=== PATIENT | male | born 1995 | race Caucasian/White ===

== ENCOUNTER → 2017-12-19 11:00 | Outpatient (CLI) | payer MEDICAID, SELFPAY | PROVIDERS: PCP Family Medicine; Visit Provider Nurse Practitioner Family | DX: B18.2 Chronic viral hepatitis C (principal); F11.20 Opioid dependence, uncomplicated; F90.9 Attention-deficit hyperactivity disorder, unspecified type | CPT/HCPCS: 99214 ==

== ENCOUNTER 2018-03-05 15:38 | Outpatient (CLI) | payer MEDICAID, SELFPAY ==
--- NOTE | 2018-03-05 15:43 | W.CCNOTE ---
Date of service: 03/05/18 Time of Service: 15:44 Comprehensive Care Clinic Note Note: [facility] [address] [place] [address] [facility] Follow Up Visit Name: Christopher Rasheed Date of : 1995 Date of Service: 03/05/2018 SUBJECTIVE: Christopher called yesterday stating he had a lot to discuss and asked to come in. ?I?m out of alf and living in DOC housing. I need to get treatment for my Hep C now and also talk about a mood stabilizer.? Has not seen his psychologist chief. He has had negative UDSs at the MAT clinic ROS: General ? weight is stable, no night sweats HEENT: neg, Cardiac/Pulmonary: neg GI: some AM nausea and aching ? no vomiting, diarrhea. GERD controlled. Extremities: No swelling or joint problems Psych: Feels n, no hallucinations, SI/HI ideation Allergies/Sensitivities: NKA Current Medications: Suboxone 16 mg a day dispensed at the [facility] clinic daily, Adderall XL 20 mg a day, Gabapentin 900mg tid, Trazadone 100mg q HS, Pantoprozole 40mg a day, Antabuse 250mg a day. Social History: Employment / Type of Work: Wants to work and is looking Health Insurance: [place] Medicaid - active Substance Abuse History: Tobacco: Smoker: Type: Amount: 1/2ppd cigarettes ? smoking has reduced ETOH: Daily/Weekly? Type: Amount: None since released Illicit Drug Use: If + Type(s): Amount: Last was Cocaine prior to recent incarceration. ?I am not going back to Cocaine. I?ll go back to alf. The Adderall helps me focus.?? RX Drug Dependence: IVDU Hx? + Last: prior to incarceration Overdose Hx? Denies Added Hx/Treatment: Suboxone x 2+ years and no illicit opiates Other Psychosocial Considerations: Has severed ties with his old GF Christopher aRsheed, 1995 pg.2. OBJECTIVE Temp: 97.9 Pulse: 70 Resp: 14 BP: 128/74 General: AINAD Skin: W/D no rash, jaundice Eyes: non icteric Cardiac: RRR, No MCRG Chest/Lungs: clear Abdomen: NABS, ND, NT, No ogm Extremities: No edema Musculoskeletal: No swollen, hot joints Neuro: Gait strong and steady, No tremor Psych: Speech w normal content and pressure but rapid, eye contact good, attitude cooperative, affect appropriate, mood anxious, memory intact, AAOx4, thought process logical with normal content. ASSESSMENT/PLAN: Chronic Active HCV with approval in the past for 12 weeks of Epclusa Treatment as suggested by Dr. Christie but Christopher was incarcerated before he could get and start the medication and so now that he is in DOC housing and once again going daily to dose with Suboxone he would like treatment and take the daily medication prior to taking the Suboxone daily. Another PA will be sent in today for this and get him a specialty pharmacy RX CASANDRA. He will stop / hold the PPI during treatment. Lab Work: He is up to date and these results will be faxed with this note to accompany the PA request that is faxed in today. Provider of Care: Sandrita Erickson NP
--- NOTE | 2018-03-05 15:46 | CCCE_ITS ---
Date of service: 03/05/18 Time of Service: 15:44 Comprehensive Care Clinic Note Note: [facility] [address] [place] [address] Comprehensive Care Clinic of [facility] Follow Up Visit Name: Christopher Rasheed Date of : 1995 Date of Service: 03/05/2018 SUBJECTIVE: Christopher called yesterday stating he had a lot to discuss and asked to come in. ?I?m out of halfway and living in DOC housing. I need to get treatment for my Hep C now and also talk about a mood stabilizer.? Has not seen his psychologist research assistant. He has had negative UDSs at the MAT clinic ROS: General ? weight is stable, no night sweats HEENT: neg, Cardiac/Pulmonary: neg GI: some AM nausea and aching ? no vomiting, diarrhea. GERD controlled. Extremities: No swelling or joint problems Psych: Feels n, no hallucinations, SI/HI ideation Allergies/Sensitivities: NKA Current Medications: Suboxone 16 mg a day dispensed at the [facility] clinic daily, Adderall XL 20 mg a day, Gabapentin 900mg tid, Trazadone 100mg q HS, Pantoprozole 40mg a day, Antabuse 250mg a day. Social History: Employment / Type of Work: Wants to work and is looking Health Insurance: [place] Medicaid - active Substance Abuse History: Tobacco: Smoker: Type: Amount: 1/2ppd cigarettes ? smoking has reduced ETOH: Daily/Weekly? Type: Amount: None since released Illicit Drug Use: If + Type(s): Amount: Last was Cocaine prior to recent incarceration. ?I am not going back to Cocaine. I?ll go back to halfway. The Adderall helps me focus.?? RX Drug Dependence: IVDU Hx? + Last: prior to incarceration Overdose Hx? Denies Added Hx/Treatment: Suboxone x 2+ years and no illicit opiates Other Psychosocial Considerations: Has severed ties with his old GF Christopher Rasheed, 1995 pg.2. OBJECTIVE Temp: 97.9 Pulse: 70 Resp: 14 BP: 128/74 General: AINAD Skin: W/D no rash, jaundice Eyes: non icteric Cardiac: RRR, No MCRG Chest/Lungs: clear Abdomen: NABS, ND, NT, No ogm Extremities: No edema Musculoskeletal: No swollen, hot joints Neuro: Gait strong and steady, No tremor Psych: Speech w normal content and pressure but rapid, eye contact good, attitude cooperative, affect appropriate, mood anxious, memory intact, AAOx4, thought process logical with normal content. ASSESSMENT/PLAN: Chronic Active HCV with approval in the past for 12 weeks of Epclusa Treatment as suggested by Dr. Christie but Christopher was incarcerated before he could get and start the medication and so now that he is in DOC housing and once again going daily to dose with Suboxone he would like treatment and take the daily medication prior to taking the Suboxone daily. Another PA will be sent in today for this and get him a specialty pharmacy RX CASANDRA. He will stop / hold the PPI during treatment. Lab Work: He is up to date and these results will be faxed with this note to accompany the PA request that is faxed in today. Provider of Care: Sandrita Erickson NP
== END 2018-03-05 15:58 ==
PROVIDERS: PCP Family Medicine; Visit Provider Nurse Practitioner Family
DX: B18.2 Chronic viral hepatitis C (principal); F11.20 Opioid dependence, uncomplicated; Z79.899 Other long term (current) drug therapy; F90.9 Attention-deficit hyperactivity disorder, unspecified type; F10.11 Alcohol abuse, in remission
CPT/HCPCS: 99214

== ENCOUNTER 2018-11-04 11:02 | Emergency (ER) | payer MEDICAID, SELFPAY ==
[2018-11-04 11:05] VITALS: BP 145/109; PULSE 75; RESP 16; TEMP 36.8; O2SAT 97
--- NOTE | 2018-11-04 11:22 | ED.GENADUL_ITS ---
Discharge Plan Disposition Patient Disposition: OTHER Condition: Stable Discharge Details Chief Complaint: PsychEval Clinical Impression: Substance use disorder, Suicidal thoughts Primary Care Provider: Juan Strickland ED Provider: Janna Flores Home Meds and New Rx's Prescriptions: Continued buprenorphine-naloxone [Suboxone] 1 EACH film 16 mg PO DAILY RF: 0 sertraline 100 mg Tablet 150 mg RF: 0 pantoprazole [Protonix] 40 mg Tablet,Delayed Release (Dr/Ec) 40 mg PO RF: 0 amitriptyline 25 mg Tablet 25 mg RF: 0 docusate sodium [Colace] 100 mg Capsule 100 PO RF: 0 Lactobacillus acidophilus [Acidophilus] Capsule RF: 0 naproxen 500 mg Tablet 500 RF: 0 Discharge Instructions Instructions: Suicide Prevention for Adults (ED), Polysubstance Abuse (ED) Additional Instructions: Please return immediately to the emergency department if you develop any new or worsening symptoms or if you become otherwise concerned. It is extremely important that you go directly to [facility] as we discussed, and that you call as soon as possible to schedule an appointment to be seen by your primary care doctor in follow-up this visit. Referrals: Juan Strickland [Primary Care Provider] - Discharge Data Discharge Date/Time-TO BE ENTERED AT DEPARTURE: 11/04/18 14:28 Medical Decision Making Christopher Rasheed is a 23-year-old man with a history of substance use disorder, alcohol use disorder, GERD, anxiety, depression presenting to the emergency de partment with suicidal thoughts. On exam patient is well and nontoxic appearing. Benign cardiopulmonary exam. Nonfocal neuro exam. No apparent kalli or hallucinations, no delusions on exam. Denies homicidal ideation. Concern for dehydration, possible metabolic/lyte derangement secondary to recent cocaine/amphetamine use, also concern for suicidality that is essentially largely conditional on avoiding long term. Exam/history is not consistent with other nonpsychiatric acute emergent life-threatening process, acute toxic ingestion. Plan for one-to-one observer, mental health evaluation, IV fluid hydration, screening labs. Labs show slightly increased AG, likely 2/2 decreased PO intake/dehydration. Patient evaluated by mental health, who states that suicidality seems completely conditional upon not going to long term. Patient does have bed available at [facility] now. radiation officer agrees to drive patient directly to [facility]. I have discussed plan with the patient, and he states that he feels very comfortable with that, and does not feel suicidal at all given that he is going to drug treatment immediately. Plan for discharge directly to [facility]. Medical Records Medical records reviewed: Yes I reviewed the patient's medical records. Lab Data Lab results reviewed: Yes I reviewed the patient's lab results. 11/04/18 11:15 Urine - Reflex from Ua Urine Culture - Final Gram Positive Willow,Mixed Laboratory Tests Range/Units 11/04/18 11/04/18 11/04/18 11:15 11:15 12:20 WBC (4.4-10.8) k/cumm RBC (4.50-6.00) m/cumm Hgb (13.5-17.5) g/dL Hct (40.0-50.0) % MCV (80-95) fL MCH (27.0-33.0) pg MCHC (32.0-36.0) g/dL RDW (11.8-14.1) % Plt Count (130-400) x1000/uL MPV (8.0-11.0) fL Immature Gran % Neutrophils % Lymphocytes % Monocytes % Eosinophils % Basophils % Absolute Neutrophils (1.2-6.7) k/cumm Absolute Lymphocytes (1.2-3.4) k/cumm Absolute Monocytes (0.11-0.7) k/cumm Absolute Eosinophils (0.0-0.7) k/cumm Absolute Basophils (0.0-0.2) k/cumm Sodium (136-145) mmol/L 141 Potassium (3.5-5.1) mmol/L 4.4 Chloride (98-107) mmol/L 102 Carbon Dioxide (21.0-32.0) mmol/L 27.0 Anion Gap (3-11) mmol/L 12.0 H BUN (7-18) mg/dL 9 Creatinine (0.70-1.30) mg/dL 0.74 Estimated GFR/1.73 m2 (mL/min/1.73m2) >= 60.00 Glucose (70-100) mg/dL 106 H Calcium (8.5-10.1) mg/dL 9.6 Total Bilirubin (0.2-1.0) mg/dL 0.7 AST (15-37) U/L 59 H ALT (12-78) U/L 100 H Alkaline Phosphatase (46-116) U/L 119 H Total Protein (6.4-8.2) g/dL 8.3 H Albumin (3.4-5.0) g/dL 5.0 TSH (0.358-3.74) uIU/mL 3.08 Urine Color (Yellow) Yellow Urine Clarity (Clear) Clear Urine pH (5-8) 7.0 Ur Specific [place] (1.005-1.025) 1.010 Urine Protein (Negative) mg/dL Negative Urine Ketones (Negative) mg/dL Negative Urine Blood (Negative) Negative Urine Nitrite (Negative) Negative Urine Bilirubin (Negative) Negative Urine Urobilinogen (Up TO 0.2) EU/dL 0.2 Ur Leukocyte Esterase (Negative) Trace H Urine RBC (0-2) Negative Urine WBC (0-5) HPF 0-2 Ur Epithelial Cells (Negative) HPF Negative Urine Crystals (Negative) HPF Negative Urine Bacteria (Negative) HPF Rare Urine Casts (Negative) LPF Negative Urine Mucus (Negative) Negative Urine Other (Negative) Negative Ur Culture Indicated? Yes Urine Glucose (Negative) mg/dL Negative Urine Opiates Screen (Negative) Negative Urine Methadone Screen (Negative) Negative Acetaminophen (10-30) ug/mL < 2 L Ur Barbiturates Screen (Negative) Negative Ur Tricyclics Screen (Negative) Negative Ur Amphetamines Screen (Negative) Positive U Benzodiazepines Scrn (Negative) Negative Urine Cocaine Screen (Negative) Positive Ur THC Screen (Negative) Positive Range/Units 11/04/18 12:20 WBC (4.4-10.8) k/cumm 4.51 RBC (4.50-6.00) m/cumm 4.92 Hgb (13.5-17.5) g/dL 15.4 Hct (40.0-50.0) % 44.2 MCV (80-95) fL 89.8 MCH (27.0-33.0) pg 31.3 MCHC (32.0-36.0) g/dL 34.8 RDW (11.8-14.1) % 12.3 Plt Count (130-400) x1000/uL 230 MPV (8.0-11.0) fL 9.8 Immature Gran % 0.2 Neutrophils % 61.9 Lymphocytes % 30.8 Monocytes % 6.7 Eosinophils % 0.2 Basophils % 0.2 Absolute Neutrophils (1.2-6.7) k/cumm 2.79 Absolute Lymphocytes (1.2-3.4) k/cumm 1.39 Absolute Monocytes (0.11-0.7) k/cumm 0.30 Absolute Eosinophils (0.0-0.7) k/cumm 0.01 Absolute Basophils (0.0-0.2) k/cumm 0.01 Sodium (136-145) mmol/L Potassium (3.5-5.1) mmol/L Chloride (98-107) mmol/L Carbon Dioxide (21.0-32.0) mmol/L Anion Gap (3-11) mmol/L BUN (7-18) mg/dL Creatinine (0.70-1.30) mg/dL Estimated GFR/1.73 m2 (mL/min/1.73m2) Glucose (70-100) mg/dL Calcium (8.5-10.1) mg/dL Total Bilirubin (0.2-1.0) mg/dL AST (15-37) U/L ALT (12-78) U/L Alkaline Phosphatase (46-116) U/L Total Protein (6.4-8.2) g/dL Albumin (3.4-5.0) g/dL TSH (0.358-3.74) uIU/mL Urine Color (Yellow) Urine Clarity (Clear) Urine pH (5-8) Ur Specific [place] (1.005-1.025) Urine Protein (Negative) mg/dL Urine Ketones (Negative) mg/dL Urine Blood (Negative) Urine Nitrite (Negative) Urine Bilirubin (Negative) Urine Urobilinogen (Up TO 0.2) EU/dL Ur Leukocyte Esterase (Negative) Urine RBC (0-2) Urine WBC (0-5) HPF Ur Epithelial Cells (Negative) HPF Urine Crystals (Negative) HPF Urine Bacteria (Negative) HPF Urine Casts (Negative) LPF Urine Mucus (Negative) Urine Other (Negative) Ur Culture Indicated? Urine Glucose (Negative) mg/dL Urine Opiates Screen (Negative) Urine Methadone Screen (Negative) Acetaminophen (10-30) ug/mL Ur Barbiturates Screen (Negative) Ur Tricyclics Screen (Negative) Ur Amphetamines Screen (Negative) U Benzodiazepines Scrn (Negative) Urine Cocaine Screen (Negative) Ur THC Screen (Negative) HPI General Mode of arrival: ambulatory . Date/Time Provider Initiated Documentation: 11/04/18 11:16 . Limitations to Documentation: no limitations . Information obtained by: patient, RN notes reviewed and old records reviewed . HPI Narrative: Christopher Rasheed is a 23-year-old man with a history of alcohol use disorder, substance use disorder, GERD, anxiety, depression presenting to the emergency department with suicidal thoughts. Patient reports that he was incarcerated for 7 months over this past winter, and has had several brief readmissions to long term. He was last in long term for 10 days, and was released 3 days ago. Patient reports that since his release he has used crack cocaine and crystal meth continuously, in violation of his parole. Patient reports that he has been told by [facility] that he likely will have placement at [facility] for drug treatment tomorrow. Patient states that if he does not go directly to inpatient rehabilitation, he is in violation of his parole and will be sent back to long term. Patient states that he has been having significant suicidal thoughts, both related to his recent drug use as he was committed to not using it again, and also related to potentially having to go back to long term. He tells me that he has been working on a plan to harm himself. Patient states that he feels very anxious from his drug use and from having not slept for the past 2 days secondary to his drug use. He also reports that he is hearing whispers but not other voices, and they are not giving him orders to telling him what to do. He reports that his anxiety and hearing whispers are consistent with when he has used a significant amount of cocaine/amphetamines in the past. Patient denies any pain, shortness of breath, vomiting, diarrhea. He reports some decreased p.o. intake over the past few days because of his drug use. Related Data Home Medications Medication Instructions Recorded Confirmed buprenorphine-naloxone [Suboxone] 16 mg PO DAILY 01/29/17 11/04/18 Lactobacillus acidophilus 11/04/18 [Acidophilus] amitriptyline 25 mg 11/04/18 docusate sodium [Colace] 100 PO 11/04/18 naproxen 500 11/04/18 pantoprazole [Protonix] 40 mg PO 11/04/18 sertraline 150 mg 11/04/18 Allergies Allergy/AdvReac Type Severity Reaction Status Date / Time No Known Allergies Allergy Unverified 11/04/18 11:11 General Stated Complaint: PsychEval RADHIKA: 2 Review of Systems Review of Systems Constitutional: denies fevers Eyes: denies eye pain ENT: denies facial pain, dental pain, sore throat Cardiovascular: denies chest pain, edema Respiratory: denies SOB, cough GI: denies abdominal pain, vomiting, diarrhea : denies flank pain MSK: denies back pain, neck pain, arthralgias, myalgias Skin: denies rash Neuro: denies headaches, numbness, weakness Psych: reports suidical thoughts, anxiety, denies homicidal ideation or thoughts [facility] Medical History Anxiety Constipation GERD (gastroesophageal reflux disease) PTSD (post-traumatic stress disorder) Substance abuse or dependence Social History Smoking/Tobacco Use Status: Current every day Tobacco Type: cigarettes Alcohol Intake: never Drug use: Binges Substance use type: marijuana, crack/cocaine, amphetamines and methamphetamine Do you feel safe at home: Yes Do you feel safe in your relationship?: Yes Exam Narrative Exam Narrative: Constitutional: well and [id number], pleasant, conversing normally HENT: head atraumatic/normocephalic/normal inspection, mucous membranes moist Eyes: conjunctiva normal, sclera normal, pupils 3mm b/l Neck: no stridor, normal ROM, trachea midline Chest: normal inspection Resp: normal work of breathing, LCTAB Cardio: normal rate, normal rhythm, no murmur appreciated GI: abdomen soft, non-tender, non-distended Back: normal inspection, no rash Skin: warm, dry, normal color, no rash Neuro: alert, not altered, grossly non-focal, normal tone Ext: no edema Psych: mildly anxious mood, normal affect, normal behavior Course Vital Signs Temperature 36.8 C 11/04/18 11:05 Pulse 75 11/04/18 11:05 Respiratory Rate 16 11/04/18 11:05 Blood Pressure 145/109 H 11/04/18 11:05 Pulse Oximetry 97 11/04/18 11:05 Temperature 36.8 C 11/04/18 11:05 Temperature Source Temporal Artery Scan 11/04/18 11:05 Pulse 75 11/04/18 11:05 Respiratory Rate 16 11/04/18 11:05 Respiratory Effort Non-Labored 11/04/18 11:09 Blood Pressure 145/109 H 11/04/18 11:05 Blood Pressure Position Sitting 11/04/18 11:05 Pulse Oximetry 97 11/04/18 11:05 Oxygen Delivery Method Room Air 11/04/18 11:05 Oxygen Flow Rate 0 11/04/18 11:05 Pain Level 0 11/04/18 11:05
[2018-11-04 11:28] LABS: Bilirubin Negative (Negative); Blood Negative (Negative); Clarity Clear (Clear); Glucose Negative (Negative); Ketones Negative (Negative); Leukocyte Esterase Trace (Negative); Nitrite Negative (Negative); Urobilinogen 0.2 EU/dL (Up TO 0.2)
[2018-11-04 11:41] LABS: *AMPHETAMINES SCREEN URINE POSITIVE (Negative); *BARBITURATES SCREEN URINE Negative (Negative); *BENZODIAZEPINES SCREEN URINE Negative (Negative); Bacteria Rare HPF (Negative); C & S Indicated? Yes; Cannabinoids THC POSITIVE (Negative); Casts Negative LPF (Negative); Cocaine Screen,Urine POSITIVE (Negative); Crystals Negative HPF (Negative); Epithelial Cells Negative HPF (Negative); METHADONE URINE SCREEN Negative (Negative); Mucus Negative (Negative); OPIATES URINE SCREEN Negative (Negative); Other Cells Negative (Negative); RBC Negative (0-2); WBC 0-2 HPF (0-5)
[2018-11-04 11:43] LABS: Tricyclic Antidepressants Negative (Negative)
[2018-11-04 12:29] LABS: Abs Immature Grans 0.01 k/cumm (0.0-0.09); Absolute Basophil Count 0.01 k/cumm (0.0-0.2); Absolute Eosinophil Count 0.01 k/cumm (0.0-0.7); Absolute Lymphocyte Count 1.39 k/cumm (1.2-3.4); Absolute Neutrophil Count 2.79 k/cumm (1.2-6.7); Basophils % 0.2; Eosinophils % 0.2; HCT 44.2 % (40.0-50.0); HGB 15.4 g/dL (13.5-17.5); Immature Grans % 0.2; Lymphocytes % 30.8; Mean Corp. HGB Concentration 34.8 g/dL (32.0-36.0); Mean Corpuscular Hemoglobin 31.3 pg (27.0-33.0); Mean Corpuscular Volume 89.8 fL (80-95); Mean Platelet Volume 9.8 fL (8.0-11.0); Monocytes % 6.7; Neutrophils % 61.9; Platelet Count 230 x1000/uL (130-400); RBC 4.92 m/cumm (4.50-6.00); RBC Distribution Width 12.3 % (11.8-14.1); White Blood Cell Count 4.51 k/cumm (4.4-10.8)
[2018-11-04] MEDS: LORazepam 1 MG TAB PO (12:35)
[2018-11-04 12:52] LABS: ALT 100 U/L (12-78); AST 59 U/L (15-37); Alkaline Phosphatase 119 U/L (46-116); BUN 9 mg/dL (7-18); Bilirubin, Total 0.7 mg/dL (0.2-1.0); CREATININE 0.74 mg/dL (0.70-1.30); Calcium 9.6 mg/dL (8.5-10.1); Chloride 102 mmol/L (98-107); Glucose 106 mg/dL (70-100); Potassium 4.4 mmol/L (3.5-5.1); Sodium 141 mmol/L (136-145); TSH 3.08 uIU/mL (0.358-3.74); Total Protein 8.3 g/dL (6.4-8.2)
[2018-11-04 12:54] LABS: Acetaminophen < 2 ug/mL (10-30)
--- NOTE | 2018-11-04 13:26 | NUR.NOTE ---
Nursing Note: Per MD Flores, IV access and IV fluids that are ordered are not necessary at this time.
--- NOTE | 2018-11-04 13:57 | PDOC.MHCN_ITS ---
Date of service: 11/04/18 Time of Service: 13:58 Mental Health Crisis Note Presenting Issue How did you arrive at the ED and why did you come: Christopher comes to the ER due to not feeling safe. Precipitating Factors Christopher reports a long history of substance use and is asking for help with detox. He recently was [facility] from [facility] to [facility] housing but states that as soon as he was back in the community, he returned to using cocaine and methamphetamines. He fears returning to [facility] and states he would rather than lose his freedom. He does acknowledge suicidal thoughts but admits that these are related to his ability to remain out of [facility]. Disposition BEHAVIOR: Cooperative. EYE CONTACT: Good. MOOD: Anxious. AFFECT: Normal. APPETITE: Good. SLEEP(trouble falling/staying asleep: Good. Plan Christopher completed an intake with Jasvir Vickta this morning. While Christopher is at the hospital, his [employer] senior planning manager calls to report that [facility] has accepted Christopher for admission today. As soon as he is discharged from [facility], Christopher will be transported to [facility] byhis navigation officer. Signature Clinician's Name/Title: Donna Parra BA, [facility] Restaurant Host/Hostess
--- NOTE | 2018-11-04 13:57 | PDOC.MHCN ---
Date of service: 11/04/18 Time of Service: 13:58 Mental Health Crisis Note Presenting Issue How did you arrive at the ED and why did you come: Christopher comes to the ER due to not feeling safe. Precipitating Factors Christopher reports a long history of substance use and is asking for help with detox. He recently was released from alf to sober housing but states that as soon as he was back in the community, he returned to using cocaine and methamphetamines. He fears returning to alf and states he would rather than lose his freedom. He does acknowledge suicidal thoughts but admits that these are related to his ability to remain out of alf. Disposition BEHAVIOR: Cooperative. EYE CONTACT: Good. MOOD: Anxious. AFFECT: Normal. APPETITE: Good. SLEEP(trouble falling/staying asleep: Good. Plan Christopher completed an intake with Jasvir Vickta this morning. While Christopher is at the hospital, his [employer] manager analytical calls to report that [facility] has accepted Christopher for admission today. As soon as he is discharged from [facility], Christopher will be transported to [facility] byhis family preservation officer. Signature Clinician's Name/Title: Donna Parra BA, [facility] Supply Person
== END 2018-11-04 14:28 | disposition other institution (70) ==
PROVIDERS: Emergency Provider Student in an Organized Health Care Education/Training Program; PCP Family Medicine
DX: F19.10 Other psychoactive substance abuse, uncomplicated (principal); R45.851 Suicidal ideations; F41.8 Other specified anxiety disorders
CPT/HCPCS: 36415; 80053; 80307; 99285; 80329; 81003; 81015; 84443; 85025; 87086; 99284

== ENCOUNTER 2018-11-27 10:33 | Emergency (ER) | payer MEDICAID, SELFPAY ==
[2018-11-27 10:37] VITALS: BP 149/100; PULSE 89; RESP 20; TEMP 36.8; O2SAT 97
--- NOTE | 2018-11-27 10:51 | ED.GENADUL_ITS ---
Discharge Plan Disposition Patient Disposition: OTHER Condition: Stable Discharge Details Chief Complaint: PsychEval Clinical Impression: Depression, Substance abuse Primary Care Provider: Juan Strickland ED Provider: Lenny Lopez Home Meds and New Rx's Prescriptions: Continued buprenorphine-naloxone [Suboxone] 1 EACH film 16 mg PO DAILY RF: 0 sertraline 100 mg Tablet 150 mg PO DAILY RF: 0 pantoprazole [Protonix] 40 mg Tablet,Delayed Release (Dr/Ec) 40 mg PO RF: 0 amitriptyline 25 mg Tablet 25 mg HS RF: 0 docusate sodium [Colace] 100 mg Capsule 100 mg PO PRN PRNRF: 0 Lactobacillus acidophilus [Acidophilus] Capsule RF: 0 naproxen 500 mg Tablet 500 mg PO DAILY RF: 0 Discharge Instructions Instructions: Depression (ED) Additional Instructions: You are medically stable for discharge to probation and parole/law enforcement. You were given today's dose of buprenorphine Continue your regular medications. Your medical screening revealed a slightly low potassium of 3.2. You should increase dietary potassium containing foods such as bananas, strawberries, tree nuts like almonds and cashews. Medical Decision Making 23-year-old male brought by community development officer in handcuffs and leg irons after violating parole. After being informed he was to be transported to group home, the patient says that he was depressed and suicidal. He states that he has been on a 2-day cocaine binge. Continues to take his methadone and other medications. Denies other drug use. He arrives with slight hypertension, otherwise unremarkable exam. Medical screening examination including laboratory work obtained. Patient seen in consultation by mental health. He had previous been accepted at [facility]. They agreed, per mental health, to accept the patient in transfer from a community development officer. Therefore, patient will be discharged into custody. He was ordered his today's dose of buprenorphine. He is stable for discharge from the ER at this time. Note of mild low potassium of 3.2. Otherwise medical screening unremarkable. He may increase dietary potassium. Lab Data Lab results reviewed: Yes I reviewed the patient's lab results. Laboratory Results - last 24 hr 11/27/18 11/27/18 11/27/18 10:58 11:25 11:25 WBC 5.29 RBC 4.49 L Hgb 13.9 Hct 39.3 L MCV 87.5 MCH 31.0 MCHC 35.4 RDW 11.9 Plt Count 199 MPV 9.6 Immature Gran % 0.2 Neutrophils % 72.4 Lymphocytes % 21.0 Monocytes % 5.3 Eosinophils % 0.9 Basophils % 0.2 Absolute Neutrophils 3.83 Absolute Lymphocytes 1.11 L Absolute Monocytes 0.28 Absolute Eosinophils 0.05 Absolute Basophils 0.01 Sodium 140 Potassium 3.2 L Chloride 102 Carbon Dioxide 25.7 Anion Gap 12.3 H BUN 12 Creatinine 0.82 Estimated GFR/1.73 m2 >= 60.00 Glucose 87 Calcium 8.9 Total Bilirubin 0.9 AST 52 H ALT 114 H Alkaline Phosphatase 103 Total Protein 7.7 Albumin 4.6 TSH 2.18 Urine Color Cancelled Urine Clarity Cancelled Urine pH Cancelled Ur Specific [place] Cancelled Urine Protein Cancelled Urine Ketones Cancelled Urine Blood Cancelled Urine Nitrite Cancelled Urine Bilirubin Cancelled Urine Urobilinogen Cancelled Ur Leukocyte Esterase Cancelled Urine Glucose Cancelled Ethyl Alcohol < 3.0 HPI General Mode of arrival: ambulatory . Date/Time Provider Initiated Documentation: 11/27/18 10:34 . Limitations to Documentation: no limitations . Information obtained by: patient . History of Present Illness 23 year old M presents to the emergency department with the chief complaint of Suicidal after informed he is to return to group home, described as moderate, Quality is described as constant, Patient reports no radiation. Patient started experiencing this hour(s) and it has been constant. No relieving factors improve symptom(s), No exacerbating factors reported . Patient notes no other symptoms.. Patient did receive the following treatments prior to arrival, none Related Data Home Medications Medication Instructions Recorded Confirmed buprenorphine-naloxone [Suboxone] 16 mg PO DAILY 01/29/17 11/27/18 Lactobacillus acidophilus 11/04/18 [Acidophilus] amitriptyline 25 mg HS 11/04/18 11/27/18 docusate sodium [Colace] 100 mg PO PRN PRN 11/04/18 11/27/18 naproxen 500 mg PO DAILY 11/04/18 11/27/18 pantoprazole [Protonix] 40 mg PO 11/04/18 sertraline 150 mg PO DAILY 11/04/18 11/27/18 Allergies Allergy/AdvReac Type Severity Reaction Status Date / Time No Known Allergies Allergy Unverified 11/27/18 10:43 General Stated Complaint: PsychEval RADHIKA: 2 Review of Systems Review of Systems Recent cocaine binge. Violated parole. Denies fall or injury. States he feels depressed and suicidal. No specific plan at this time [facility] Medical History Anxiety Constipation GERD (gastroesophageal reflux disease) PTSD (post-traumatic stress disorder) Substance abuse or dependence Social History Smoking/Tobacco Use Status: Current every day Tobacco Type: cigarettes Alcohol Intake: never Drug use: Binges Substance use type: marijuana, crack/cocaine, amphetamines and methamphetamine Details: Is currently on suboxone 16mg Do you feel safe at home: Yes Do you feel safe in your relationship?: Yes Exam Narrative Exam Narrative: GEN: awake, alert, oriented 3. Pleasant, well groomed, interactive. HEAD: Normocephalic, atraumatic ENT: Mucous membranes moist, oropharynx unremarkable, External ear exam unremarkable EYES: PERRL, EOMI NECK: Full ROM, no MIGUELANGEL, no menigismus CHEST/RESP: Nontender, clear to auscultation bilateral, no wheeze/rhonchi/rales CARDIOVASCULAR: RRR, no murmur, rub joann. 2+ Rad pulse bilateral ABDOMEN: Soft, nontender, no mass. +Bowel sounds EXT: Full ROM, no edema, no rash Neuro: Grossly normal neurologic exam, conversant, interactive. Psych: Speech fluent, thoughts congruent, affect normal Course Vital Signs Temperature 36.8 C 11/27/18 10:37 Pulse 89 11/27/18 10:37 Respiratory Rate 20 11/27/18 10:37 Blood Pressure 149/100 H 11/27/18 10:37 Pulse Oximetry 97 11/27/18 10:37 Temperature 36.8 C 11/27/18 10:37 Temperature Source Temporal Artery Scan 11/27/18 10:37 Pulse 89 11/27/18 10:37 Respiratory Rate 20 11/27/18 10:37 Respiratory Effort Non-Labored 11/27/18 10:37 Blood Pressure 149/100 H 11/27/18 10:37 Blood Pressure Position Sitting 11/27/18 10:37 Pulse Oximetry 97 11/27/18 10:37 Pain Level 0 11/27/18 10:37
[2018-11-27 11:31] LABS: Abs Immature Grans 0.01 k/cumm (0.0-0.09); Absolute Basophil Count 0.01 k/cumm (0.0-0.2); Absolute Eosinophil Count 0.05 k/cumm (0.0-0.7); Absolute Lymphocyte Count 1.11 k/cumm (1.2-3.4); Absolute Monocyte Count 0.28 k/cumm (0.11-0.7); Absolute Neutrophil Count 3.83 k/cumm (1.2-6.7); Basophils % 0.2; Eosinophils % 0.9; HCT 39.3 % (40.0-50.0); HGB 13.9 g/dL (13.5-17.5); Immature Grans % 0.2; Mean Corp. HGB Concentration 35.4 g/dL (32.0-36.0); Mean Corpuscular Volume 87.5 fL (80-95); Mean Platelet Volume 9.6 fL (8.0-11.0); Monocytes % 5.3; Neutrophils % 72.4; Platelet Count 199 x1000/uL (130-400); RBC 4.49 m/cumm (4.50-6.00); RBC Distribution Width 11.9 % (11.8-14.1); White Blood Cell Count 5.29 k/cumm (4.4-10.8)
--- NOTE | 2018-11-27 12:02 | PDOC.MHCN ---
Date of service: 11/27/18 Time of Service: 12:02 Mental Health Crisis Note Presenting Issue How did you arrive at the ED and why did you come: Christopher presents at the ED due to suicidal ideation. Precipitating Factors Christopher reports he was discharged from [facility] on November 21, 2018, and he started using crack cocaine on his way home. He has continued using everyday since being back in the community. He states he cannot continue living this way, has been experiencing suicidal ideation since his discharge from [facility], is feeling hopeless and worthless, and just wants to . When asked about a plan, he states either suicide by engraver copperplate or jumping out in front of a moving vehicle. Christopher was kicked out of the [facility] this morning due to his on-going use and this resulted in his probation being revoked due to a lack of residence. Christopher advises he knew he would be returning to alf and this caused his suicidal ideation to worsen. He reportedly called the [facility] this morning in search of a placement and he alleges that they are holding a bed for him. Disposition BEHAVIOR: Cooperative. EYE CONTACT: Good. MOOD: Depressed. AFFECT: Anxious. APPETITE: Reported as poor. SLEEP(trouble falling/staying asleep: Says he only sleeps a couple of hours per night. Plan A phone call to the [facility] finds that they are in fact expecting Christopher for admission today. After a conversation with Probation and [facility] [place] and Dr. Lopez, the decision is made for Probation and [facility] to transport Christopher to the [facility]. Signature Clinician's Name/Title: Donna Parra BA, [facility] Network Manager
[2018-11-27 12:20] LABS: ALT 114 U/L (12-78); AST 52 U/L (15-37); Albumin 4.6 g/dL (3.4-5.0); Alkaline Phosphatase 103 U/L (46-116); Anion Gap 12.3 mmol/L (3-11); BUN 12 mg/dL (7-18); Bilirubin, Total 0.9 mg/dL (0.2-1.0); CO2 25.7 mmol/L (21.0-32.0); CREATININE 0.82 mg/dL (0.70-1.30); Calcium 8.9 mg/dL (8.5-10.1); Chloride 102 mmol/L (98-107); Glucose 87 mg/dL (70-100); Potassium 3.2 mmol/L (3.5-5.1); Sodium 140 mmol/L (136-145); TSH 2.18 uIU/mL (0.36-3.74); Total Protein 7.7 g/dL (6.4-8.2)
[2018-11-27 12:23] LABS: ETHANOL BLOOD < 3.0 mg/dL (<3)
[2018-11-27] MEDS: Buprenorphine/Naloxone 8 mg/2 mg FILM 2 EACH SL (12:32)
== END 2018-11-27 12:33 | disposition other institution (70) ==
PROVIDERS: Emergency Provider Emergency Medicine; PCP Family Medicine
DX: F32.9 Major depressive disorder, single episode, unspecified (principal); F14.90 Cocaine use, unspecified, uncomplicated; R45.851 Suicidal ideations; E87.6 Hypokalemia; I10 Essential (primary) hypertension
CPT/HCPCS: 36415; 80053; 80307; 99285; 80320; 81003; 84443; 85025; 99284